=== PATIENT | female | born 1975 | race Caucasian/White ===

== ENCOUNTER 2021-02-10 11:21 | Emergency (ER) | payer OTHER ==
[~2021-02-10] VITALS: Ht 162.6 cm; Wt 75.0 kg
[2021-02-10 13:06] VITALS: BP 125/76
== END 2021-02-10 13:08 | disposition home or self-care (01) ==
LOC: EMS 11:23
DX: Z11.1 Encounter for screening for respiratory tuberculosis (principal)
CPT/HCPCS: 71046; 99283